=== PATIENT | female | born 1995 | race Caucasian/White ===

== ENCOUNTER 2018-05-14 16:07 | Emergency (ER) | payer MEDICAID ==
[~2018-05-14] VITALS: Ht 154.9 cm; Wt 54.0 kg
[2018-05-14 16:21] VITALS: Ht 154.9 cm; Wt 54.0 kg
[2018-05-14 17:23] VITALS: BP 114/64
== END 2018-05-14 17:23 | disposition home or self-care (01) ==
LOC: ED 16:07
DX: S31.109A Unspecified open wound of abdominal wall, unspecified quadrant without penetration into peritoneal cavity, initial encounter (principal); X58.XXXA Exposure to other specified factors, initial encounter; Y93.89 Activity, other specified; Y92.89 Other specified places as the place of occurrence of the external cause; Y99.8 Other external cause status

== ENCOUNTER 2018-10-03 13:18 | Emergency (ER) | payer MEDICAID ==
[~2018-10-03] VITALS: Ht 154.9 cm; Wt 53.1 kg
[2018-10-03 13:27] VITALS: Ht 154.9 cm; Wt 53.1 kg
[2018-10-03 14:41] VITALS: BP 112/72
== END 2018-10-03 14:41 | disposition home or self-care (01) ==
LOC: ED 13:18
DX: J30.9 Allergic rhinitis, unspecified (principal); R05 Cough; F17.200 Nicotine dependence, unspecified, uncomplicated; Z71.6 Tobacco abuse counseling
CPT/HCPCS: 99406; Q0092